=== PATIENT | female | born 1990 | race Caucasian/White ===

== ENCOUNTER 2018-02-22 19:17 | Emergency (ER) | payer BC ==
[~2018-02-22] VITALS: Ht 149.9 cm; Wt 64.9 kg
[2018-02-22 19:35] VITALS: BP 110/67
[2018-02-22] MEDS ORDERED: TDAP [DIPH/PERTUSSIS/TET] 0.5 ML VIAL IM ONE ×2 (20:00→20:01)
== END 2018-02-22 22:08 | disposition home or self-care (01) ==
LOC: ER 19:21
DX: S00.81XA Abrasion of other part of head, initial encounter (principal); S20.319A Abrasion of unspecified front wall of thorax, initial encounter; S20.312A Abrasion of left front wall of thorax, initial encounter; R51 Headache; M25.562 Pain in left knee; V43.52XA Car driver injured in collision with other type car in traffic accident, initial encounter; Y93.89 Activity, other specified; Y92.410 Unspecified street and highway as the place of occurrence of the external cause; Y99.8 Other external cause status
CPT/HCPCS: 70450; 71045; 73564; 90471; 90715; 99284; A4606; A6403; Z7610